=== PATIENT | female | born 1955 ===

== ENCOUNTER 2017-12-26 15:37 | Emergency (ER) | payer OTHER ==
[2017-12-26 15:47] VITALS: BP 187/98; PULSE 77; RESP 16; TEMP 97.7; O2SAT 97
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
--- NOTE | 2017-12-26 19:25 | RAD ---
PROCEDURE: Right Wrist Radiographs. HISTORY: r/o fx COMPARISON: None. FINDINGS: BONES: No acute fracture or destructive bony lesion identified. JOINTS: Limited cortical sclerosis appreciate throughout the carpal carpal and carpal metacarpal articulations as well as the radiocarpal articulation compatible degenerative joint disease. No osteophyte development is identified or prominent joint space narrowing. The navicular bone appears intact. SOFT TISSUES: Normal. OTHER FINDINGS: None. IMPRESSION: Degenerative changes as discussed above. No acute fracture or dislocation identified.
== END 2017-12-26 19:00 | disposition home or self-care (01) ==
LOC: H.ER 15:37
DX: M25.531 Pain in right wrist (principal); M54.9 Dorsalgia, unspecified; V43.52XA Car driver injured in collision with other type car in traffic accident, initial encounter; Y92.410 Unspecified street and highway as the place of occurrence of the external cause; E11.9 Type 2 diabetes mellitus without complications; E78.00 Pure hypercholesterolemia, unspecified; I10 Essential (primary) hypertension; M79.7 Fibromyalgia; F32.9 Major depressive disorder, single episode, unspecified; M81.0 Age-related osteoporosis without current pathological fracture; Z79.82 Long term (current) use of aspirin